=== PATIENT | female | born 1945 | race Caucasian/White ===

== ENCOUNTER 2016-05-08 09:16 | Inpatient (IN) | payer OTHER ==
[~2016-05-08] VITALS: Ht 160 cm; Wt 61.9 kg
[~2016-05-08 09:16] MED LIST: ATENOLOL50 MG PO; AVAPRO300 MG PO; BENADRYL25 MG PO; FLUOXETINE HCL10 MG PO; HYDROCHLOROTH12.5 M3 PO; NEXIUM40 MG PO; OXYCODONE HCL5 MG PO; SENNA PLUS TAB1 EACH PO; VIACTIV SOFT C1 EACH PO; VOLTAREN75 MG PO; VYTORIN 10/41 TABLET PO; XARELTO10 MG PO
[2016-05-08 09:35] VITALS: BP 161/67
[2016-05-08 16:25] VITALS: BP 118/57
[2016-05-08 18:20] VITALS: BP 104/48
[2016-05-08 19:40] VITALS: BP 128/67
[2016-05-08 23:35] VITALS: BP 115/58
[2016-05-09] VITALS (7 sets, daily range): BP systolic 116–133; BP diastolic 58–61
[2016-05-09 07:11] LABS: HEMATOCRIT 30.2 % (36.0-46.0); MCV 83.4 FL (83-99)
[2016-05-09 07:32] LABS: ANION GAP 11 MEQ/L (2-14); CHLORIDE 103 MEQ/L (99-109); GFR ESTIMATE (CALCULATED) > 59 mL/min/; GLUCOSE 153 mg/dL (70-99); POTASSIUM 3.5 MEQ/L (3.7-5.4); SAMPLE HEMOLYSIS CHECK 0; SAMPLE ICTERIC CHECK 0; SAMPLE LIPEMIA CHECK 0; SODIUM 140 MEQ/L (136-147); UREA NITROGEN (BUN) 14 mg/dL (9-23)
[2016-05-10 03:41] VITALS: BP 106/56
[2016-05-10 05:11] LABS: MCV 83.3 FL (83-99)
[2016-05-10 05:12] LABS: CHLORIDE 101 mEq/L (99-109); POTASSIUM 3.6 mEq/L (3.7-5.4); SODIUM 135 mEq/L (136-147)
[2016-05-10 05:14] LABS: GLUCOSE 115 mg/dL (70-99)
[2016-05-10 05:15] LABS: ANION GAP 10 MEQ/L (2-14)
[2016-05-10 05:17] LABS: GFR ESTIMATE (CALCULATED) > 59 mL/min/
[2016-05-10 05:18] LABS: UREA NITROGEN (BUN) 11 mg/dL (9-23)
[2016-05-10 08:27] VITALS: BP 119/56
[2016-05-10] MEDS ORDERED: OXYCODONE HCL5 MG PO (10:47)
[2016-05-10] MEDS ORDERED: LIDOCAINE700 MG TD (10:47)
[2016-05-10] MEDS ORDERED: XARELTO10 MG PO (10:48)
[2016-05-10 11:30] VITALS: BP 119/56
== END 2016-05-10 14:28 | disposition home or self-care (01) | DRG 470 ==
LOC: 2SOUTH 09:16 → 3EAST 09:16 → EDSTATUS 12:52 → SDC 12:52 → 2SOUTH 12:53 → 3EAST 16:33
PROVIDERS: Orthopaedic Surgery
PROC: 0SR904Z Replacement of Right Hip Joint with Ceramic on Polyethylene Synthetic Substitute, Open Approach (ICD-10-PCS; principal; 2016-05-08)
DX: M16.11 Unilateral primary osteoarthritis, right hip (principal); D62 Acute posthemorrhagic anemia; E87.6 Hypokalemia; G89.18 Other acute postprocedural pain; M25.551 Pain in right hip; I10 Essential (primary) hypertension; F32.9 Major depressive disorder, single episode, unspecified; G57.11 Meralgia paresthetica, right lower limb; K21.9 Gastro-esophageal reflux disease without esophagitis; E78.00 Pure hypercholesterolemia, unspecified; F41.9 Anxiety disorder, unspecified; M81.0 Age-related osteoporosis without current pathological fracture; Z87.891 Personal history of nicotine dependence; Z96.642 Presence of left artificial hip joint
CPT/HCPCS: 73501; 80048; 85014; 85018; J0131; J0690; J2250; J2270; J2405; J3010; J7050